=== PATIENT | female | born 1965 | race Caucasian/White ===

== ENCOUNTER 2024-08-28 08:57 | Outpatient (CLI) | payer SELFPAY ==
--- NOTE | 2024-08-28 09:15 | USCV_ITS ---
Maddison Power Age: 59 Gender: F : 1965 Exam Date: 08/28/2024 09:05 Ordering Phys: Alyssa Stafford NP Technologist: CT Exam Location: [facility] [place]_ Indication: PROCEDURES: Venous duplex imaging was performed in only the left lower extremity. On the left side, the common femoral, superficial femoral, profunda femoral, popliteal, posterior tibial, greater saphenous veins, and the peroneal trunk were identified and interrogated in the standard fashion. FINDINGS: Acute DVT is noted throughout the posterior tibial vein and extending into the lesser sapenous vein. Additional superficial lower extremity varicosities with thrombus. CFV to popliteal vein are normal. CONCLUSIONS Acute DVT PTV and lesser saphaneous vein. Superficial thrombophlebitis below the knee. Ms. Power was made aware of the findings and told to follow up with physician. She is already being treated for DVT. Dr. Latisha Cisse DO (Electronically Signed) Final Date: 28 August 2024 09:39 S
== END 2024-08-28 08:58 | disposition home or self-care (01) ==
LOC: RAD 08:58
PROVIDERS: Visit Provider Nurse Practitioner Family
DX: I82.812 Embolism and thrombosis of superficial veins of left lower extremity (principal); R94.31 Abnormal electrocardiogram [ECG] [EKG]
CPT/HCPCS: 93005; 93971

== ENCOUNTER 2024-08-28 14:19 | Emergency (ER) | payer SELFPAY ==
[2024-08-28 14:29] VITALS: BP 147/75; PULSE 79; RESP 16; TEMP 36.7; O2SAT 95
--- NOTE | 2024-08-28 14:32 | ECG_ITS ---
[facility] Test Date: 2024-08-28 Pat Name: Maddison Power Department: Room: Gender: Female Community Education Specialist: : 1965 Requested By: Daryl Hong Order Number: [id number] Faizan MD: Nicolás Dumont M.D. Measurements Intervals [place] Rate: 75 P: 63 DE: 148 QRS: 25 QRSD: 89 T: 20 QT: 407 QTc: 455 Interpretive Statements SINUS RHYTHM LOW QRS VOLTAGE IN PRECORDIAL LEADS ST DEVIATION AND MODERATE T-WAVE ABNORMALITY, CONSIDER ANTEROLATERAL ISCHEMIA Compared to ECG 07/19/2015 16:22:21 T-wave abnormality now present Possible ischemia now present Electronically Signed On 08-29-2024 13:44:36 CDT by Nicolás Dumont M.D. [id number]
--- NOTE | 2024-08-28 14:53 | XR_ITS ---
WS: [id number] Portable AP upright chest, 08/28/2024 Clinical Data: palpitations Comparison: Portable chest, 07/19/2015 Findings: No nodules, masses or effusions are seen. The heart is slightly enlarged. The pulmonary vas cularity is not increased. No pneumonia or pneumothorax is seen. There are monitor leads on the chest wall. XR/XR chest 1V portable [id number] Impression: Minimal cardiomegaly.
[2024-08-28 15:01] VITALS: BP 142/59; PULSE 77; RESP 18; O2SAT 93
[2024-08-28 15:17] LABS: Basophils % 0.5 %; Eosinophils # 0.2 10^3/uL (0.0-0.8); Eosinophils % 1.7 %; Hematocrit 40.2 % (36-47); Lymphocytes # 2.9 10^3/uL (0.8-4.8); Lymphocytes % 33.8 %; Mean Corpuscular HGB Conc 35.1 g/dL (30-55); Mean Corpuscular Hemoglobin 41.7 pg (27-33); Mean Corpuscular Volume 118.9 fl (85-98); Mean Platelet Volume 9.8 fL (7.4-10.4); Monocytes # 0.6 10^3/uL (0.2-0.9); Monocytes % 6.4 %; Neutrophils # 4.92 10^3/uL (1.8-7.7); Neutrophils % 57.4 %; Nucleated Red Blood Cells % 0 %; Platelet Count 270 10^3/cmm (157-399); Red Blood Count 3.38 10^6/uL (3.85-5.65); Red Cell Distribution Width 13.7 % (12.1-15.1); White Blood Count 8.58 10^3/uL (3.29-11.43)
[2024-08-28 15:30] VITALS: BP 146/79; PULSE 71; RESP 17; O2SAT 96
[2024-08-28 15:36] LABS: Troponin(5th) Baseline 10 ng/L (0-10)
[2024-08-28 15:43] LABS: Anion Gap 13.2 (5-19); Blood Urea Nitrogen 11 mg/dL (6-20); Calcium 8.8 mg/dL (8.5-10.5); Carbon Dioxide 29 mmol/L (22-29); Chloride 101 mmol/L (98-107); Creatinine Clr Calc Pharmacy 89.7941; Glomerular Filtration Rate 85.6 mL/min (90-130); Glucose 119 mg/dL (65-115); NT Pro B Type Natriuretic Pept 373 pg/mL (0-125); Osmolality Calculated 291 mOsm/kg (285-295); Potassium 3.2 mmol/L (3.5-5.1); Sodium 140 mmol/L (136-145)
[2024-08-28 16:00] VITALS: BP 138/62; PULSE 67; RESP 18; O2SAT 93
--- NOTE | 2024-08-28 16:20 | ED_ITS ---
HPI - Recheck/Abnormal Lab/Rx 2 General: Chief Complaint: Recheck/Abnormal Lab/Rx Stated Complaint: clinic sent - EKg, fast heart beat Time Seen by Provider: 08/28/24 14:29 History of Present Illness: This patient is a 59-year-old white female who was sent to the emergency department by her primary care provider. Patient went to the clinic for follow- up on a DVT in the left leg. She was started on Eliquis on Saturday. In the clinic stated ordered an EKG which revealed some inverted T waves and some ST segment depression in the precordial leads and recommended she come to the emergency department for further evaluation. Patient denies having any chest pain or shortness of breath. She has no prior cardiac history. Related Data Previous Rx's Medication Instructions Recorded apixaban 5 mg (74 tabs) tablets in See Rx Instructions PO PER PKG DIR 08/26/24 a dose pack #74 ea Allergies Allergy/AdvReac Type Severity Reaction Status Date / Time No Known Allergies Allergy Unverified 08/28/24 12:54 Review of Systems 2 General: Reports: 10 or more systems reviewed and unremarkable except in HPI and below PFSH ED 2 PFSH: Social History Smoking and tobacco/nicotine status: current every day tobacco/nicotine user cigarettes Alcohol intake: current Alcohol intake frequency: few times a week Substance/Drug Use: never Physical Exam 2 Const: COMMON NORMALS: no acute distress, patient oriented x3 and no limitations GENERAL APPEARANCE: cooperative and comfortable HENMT: COMMON NORMALS: normocephalic, atraumatic, Normal nasal mucous membranes and turbinates present, moist oral mucous membranes and oropharynx normal HEAD & SCALP: normal to inspection, normocephalic and atraumatic F BOOGIE & SINUS: normal facial exam NOSE: Normal nasal mucous membranes and turbinates present Eye: COMMON NORMALS: Equal, round and reactive pupils present, EOMs intact bilaterally and conjunctivae normal GENERAL EYE: appearance normal, both eyes and all related structures CONJUNCTIVA: Yes conjunctivae normal PUPIL: Yes Equal, round and reactive pupils present Neck/C-Spine: COMMON NORMALS: supple and no JVD Chest: COMMONS NORMALS: normal inspection of the chest Resp: COMMON NORMALS: normal respiratory effort and clear to auscultation bilaterally AUSCULTATION: clear to auscultation bilaterally Cardio: COMMON NORMALS: no JVD, regular rate, regular rhythm, No gallops present (Cardio), No murmurs present (Cardio) and No rub (Cardio) RATE: r egular rate RHYTHM: regular rhythm GI: COMMON NORMALS: Normal to inspection, nondistended, normoactive bowel sounds present, Soft to palpation and non-tender AUSCULTATION: Yes normoactive bowel sounds PALPATION: Yes Soft to palpation : COMMON NORMALS: Yes no CVA tenderness BLADDER/KIDNEY EXAM: Yes no CVA tenderness Back/Pelvis: COMMON NORMALS: no CVA tenderness and thoracic and lumbar spine normal to inspection Extremity: COMMON NORMALS: normal to inspection Neuro: COMMON NORMALS: patient oriented x3 and CN's II-XII intact bilaterally Psych: COMMON NORMALS: mental status grossly normal, Normal thought process present and cooperative THOUGHT PROCESS: Normal thought process present Skin: COMMON NORMALS: no rashes or lesions noted, turgor normal and no jaundice GENERAL SKIN EXAM: no rashes or lesions noted and turgor normal Course 2 Vital Signs: Vital signs: Vital Signs Temperature 98.0 F 08/28/24 14:29 Pulse Rate 67 08/28/24 16:00 Respiratory Rate 18 08/28/24 16:00 Blood Pressure 138/62 08/28/24 16:00 Pulse Oximetry 93 08/28/24 16:00 Oxygen Delivery Me thod Room Air 08/28/24 16:00 MDM - Recheck/Abnormal Lab/Rx Medical Decision Making EKG here does reveal inverted T waves in the precordial leads V1 through V5. Some mild ST segment depression in leads V2 through V5. Chest x-ray reveals mild cardiomegaly. CBC was normal. BMP was normal except for slightly low potassium of 3.2. BNP was 373. Troponin was 10. I recommended patient have echocardiogram performed. Recommended she either follow-up with her primary care physician or cardiology for further workup. She was discharged in stable condition. Lab Data 08/28/24 15:10 08/28/24 15:10 Radiology Impressions Chest X-Ray 08/28/24 14:53 Impression: Minimal cardiomegaly. Laboratory Results WBC 8.58 10^3/uL (3.29-11.43) 08/28/24 15:10 RBC 3.38 10^6/uL (3.85-5.65) L 08/28/24 15:10 Hgb 14.10 g/dL (11.27-16.99) 08/28/24 15:10 Hct 40.2 % (36-47) 08/28/24 15:10 MCV 118.9 fl (85-98) H 08/28/24 15:10 MCH 41.7 pg (27-33) H 08/28/24 15:10 MCHC 35.1 g/dL (30-55) 08/28/24 15:10 RDW 13.7 % (12.1-15.1) 08/28/24 15:10 Plt Count 270 10^3/cmm (157-399) 08/28/24 15:10 MPV 9.8 fL (7.4-10.4) 08/28/24 15:10 Neut % (Auto) 57.4 % 08/28/24 15:10 Lymph % (Auto) 33.8 % 08/28/24 15:10 Howell % (Auto) 6.4 % 08/28/24 15:10 Eos % (Auto) 1.7 % 08/28/24 15:10 Baso % (Auto) 0.5 % 08/28/24 15:10 Neut # (Auto) 4.92 10^3/uL (1.8-7.7) 08/28/24 15:10 Lymph # (Auto) 2.9 10^3/uL (0.8-4.8) 08/28/24 15:10 Howell # (Auto) 0.6 10^3/uL (0.2-0.9) 08/28/24 15:10 Eos # (Auto) 0.2 10^3/uL (0.0-0.8) 08/28/24 15:10 Baso # (Auto) 0.0 10^3/uL (0.0-0.1) 08/28/24 15:10 Nucleated RBC % (auto) 0 % 08/28/24 15:10 Nucleated RBCs # 0.0 /100WBC 08/28/24 15:10 Sodium 140 mmol/L (136-145) 08/28/24 15:10 Potassium 3.2 mmol/L (3.5-5.1) L 08/28/24 15:10 Chloride 101 mmol/L (98-107) 08/28/24 15:10 Carbon Dioxide 29 mmol/L (22-29) 08/28/24 15:10 Anion Gap 13.2 (5-19) 08/28/24 15:10 BUN 11 mg/dL (6-20) 08/28/24 15:10 Creatinine 0.7 mg/dL (0.5-0.9) 08/28/24 15:10 GFR Calculation 85.6 mL/min (90-130) L 08/28/24 15:10 Glucose 119 mg/dL (65-115) H 08/28/24 15:10 Calculated Osmolality 291 mOsm/kg (285-295) 08/28/24 15:10 Calcium 8.8 mg/dL (8.5-10.5) 08/28/24 15:10 Troponin T Baseline 10 ng/L (0-10) 08/28/24 15:10 NT-Pro-B Natriuret Pep 373 pg/mL (0-125) H 08/28/24 15:10 All radiology interpretation(s) finalized by discharge Discharge Plan Discharge Patient Disposition: Home Clinical Impression: Abnormal ECG Condition: Stable Prescriptions: No Action apixaban 5 mg (74 tabs) tablets,dose pack See Rx Instructions PO PER PKG DIR Qty: 74 0RF Rx Instructions: PO PER PKG DIR Discharge Orders: Discharge ED (Routine); Ordered 08/28/24 Ordered By: Barrera Malin Discharge Activity: May return to work/school without restrictions Activity Restrictions/Additional Instructions: Follow-up with your primary care provider and have them either refer you to cardiology for further evaluation and/or order an echocardiogram. 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
[2024-08-28 16:43] VITALS: BP 155/67; PULSE 70; RESP 16; O2SAT 98
== END 2024-08-28 16:36 | disposition home or self-care (01) ==
PROVIDERS: Emergency Provider Emergency Medicine
DX: R94.31 Abnormal electrocardiogram [ECG] [EKG] (principal); F17.210 Nicotine dependence, cigarettes, uncomplicated
CPT/HCPCS: 71045; 80048; 83880; 84484; 85025; 93005; 99285

== ENCOUNTER → 2024-10-07 15:20 | Outpatient (BNVA) | payer SELFPAY | PROVIDERS: Visit Provider Family Medicine | DX: I10 Essential (primary) hypertension (principal); I82.402 Acute embolism and thrombosis of unspecified deep veins of left lower extremity; E66.811 Obesity, class 1 | CPT/HCPCS: 80053; 80061; 83036; 84439; 84443; 85610 ==